=== PATIENT | female | born 1985 | race African-American/Black ===

== ENCOUNTER 2016-10-12 19:37 | Emergency (ER) | payer MEDICAID ==
[~2016-10-12] VITALS: Ht 165.1 cm; Wt 48.2 kg
[~2016-10-12 19:37] MED LIST: ARIP15TA3 PO
[2016-10-12 21:46] LABS: BASOPHILS # (AUTO) 0.03 K/uL (0.00-0.20); BASOPHILS % (AUTO) 0.3 % (0.0-2.0); EOSINOPHILS # (AUTO) 0.15 K/uL (0.00-0.70); EOSINOPHILS % (AUTO) 1.57 % (1.0-6.0); HEMATOCRIT 36.6 % (36-46); HEMOGLOBIN 12.4 g/dL (12.0-16.0); LYMPHOCYTES # (AUTO) 3.1 K/uL (1.0-4.8); LYMPHOCYTES % (AUTO) 31.2 % (22.0-44.0); MEAN CORPUSCULAR HEMOGLOBIN 28.1 pg (26.0-34.0); MEAN CORPUSCULAR HGB CONC 33.8 G/dL (31.0-37.0); MEAN CORPUSCULAR VOLUME 83 fL (80-100); MONOCYTES # (AUTO) 0.7 K/uL (0.1-1.0); MONOCYTES % (AUTO) 6.6 % (2.0-9.0); NEUTROPHILS % (AUTO) 60.3 % (40.0-70.0); PLATELET COUNT (AUTO) 265 K/uL (150-450); RED BLOOD CELL COUNT(AUTO) 4.42 MIL/uL (4.00-5.20); RED CELL DISTRIBUTION WIDTH 13.5 % (11.5-14.5); WHITE BLOOD COUNT (AUTO) 9.9 K/uL (4.5-11.0)
[2016-10-12 21:59] LABS: ANION GAP 7 mmol/L (8-16); CALCIUM, TOTAL 9.1 mg/dL (8.8-10.5); CARBON DIOXIDE 28 mmol/L (22-29); CHLORIDE 106 mmol/L (98-107); CREATININE 0.54 mg/dL (0.60-1.30); GLOMERULAR FILTR. RATE CALC > 60 mL/min (>60); POTASSIUM 4.3 mmol/L (3.5-5.1); SODIUM SERUM 141 mmol/L (136-145); UREA NITROGEN, BLOOD 10 mg/dL (7-18)
[2016-10-12 22:04] LABS: ALANINE AMINOTRANSFERASE 23 U/L (12-78); ALBUMIN 3.7 g/dL (3.4-5.0); ASPARTATE AMINOTRANSFERASE 13 U/L (15-37); BILIRUBIN,TOTAL 0.1 mg/dL (0.1-1.0); TOTAL PROTEIN, SERUM 7.1 g/dL (6.4-8.2)
[2016-10-12 22:07] VITALS: BP 125/73
== END 2016-10-12 22:16 | disposition home or self-care (01) ==
LOC: EMS 19:38
DX: F29 Unspecified psychosis not due to a substance or known physiological condition (principal); F32.9 Major depressive disorder, single episode, unspecified
CPT/HCPCS: 36415; 80053; 85025; 99284; G0480

== ENCOUNTER 2016-10-18 04:17 | Inpatient (IN) | payer MEDICAID, OTHER ==
[~2016-10-18] VITALS: Ht 152.4 cm; Wt 47.9 kg
[2016-10-18 05:20] LABS: BASOPHILS % (AUTO) 0.3 % (0.0-2.0); EOSINOPHILS % (AUTO) 1.7 % (1.0-6.0); HEMATOCRIT 36.1 % (36-46); HEMOGLOBIN 11.8 g/dL (12.0-16.0); LYMPHOCYTES % (AUTO) 30.3 % (22.0-44.0); MEAN CORPUSCULAR HEMOGLOBIN 27.2 pg (26.0-34.0); MEAN CORPUSCULAR HGB CONC 32.7 G/dL (31.0-37.0); MEAN CORPUSCULAR VOLUME 83 fL (80-100); MONOCYTES # (AUTO) 0.8 K/uL (0.1-1.0); MONOCYTES % (AUTO) 7.7 % (2.0-9.0); NEUTROPHILS # (AUTO) 5.9 K/uL (1.8-7.7); PLATELET COUNT (AUTO) 269 K/uL (150-450); RED BLOOD CELL COUNT(AUTO) 4.35 MIL/uL (4.00-5.20); WHITE BLOOD COUNT (AUTO) 9.8 K/uL (4.5-11.0)
[2016-10-18 05:26] LABS: ANION GAP 7 mmol/L (8-16); CALCIUM, TOTAL 8.2 mg/dL (8.8-10.5); CARBON DIOXIDE 29 mmol/L (22-29); CHLORIDE 103 mmol/L (98-107); CREATININE 0.62 mg/dL (0.60-1.30); GLOMERULAR FILTR. RATE CALC > 60 mL/min (>60); POTASSIUM 3.6 mmol/L (3.5-5.1); SODIUM SERUM 139 mmol/L (136-145); UREA NITROGEN, BLOOD 12 mg/dL (7-18)
[2016-10-18 05:36] LABS: ALANINE AMINOTRANSFERASE 20 U/L (12-78); ALBUMIN 3.4 g/dL (3.4-5.0); ASPARTATE AMINOTRANSFERASE 13 U/L (15-37); BILIRUBIN,TOTAL 0.2 mg/dL (0.1-1.0); TOTAL PROTEIN, SERUM 6.7 g/dL (6.4-8.2)
[2016-10-18] MEDS ORDERED: HALOPERIDOL 5 MG TABLET PO PRN (07:00)
[2016-10-18] MEDS ORDERED: LORazepam 2 MG TABLET PO PRN (07:00)
[2016-10-18 21:57] VITALS: BP 115/73
[2016-10-18] MEDS ORDERED: INFLUENZA VIRUS VACCINE QVS 2016-17 (3YR+)/PF 60 MCG/0.5 ML SYRINGE IM ONE (22:30)
[2016-10-19 06:39] VITALS: BP 109/61
[2016-10-19 08:55] VITALS: BP 113/66
[2016-10-19] MEDS: ARIPiprazole 15 MG TABLET PO SCH (09:00)
[2016-10-19 18:59] VITALS: BP 104/65
[2016-10-20 08:00] VITALS: BP 118/70
[2016-10-20] MEDS: ARIPiprazole 15 MG TABLET PO SCH ×2 (09:00→10:04)
[2016-10-20 16:29] VITALS: BP 104/65
[2016-10-21] MEDS: ARIPiprazole 15 MG TABLET PO SCH (09:00)
[2016-10-21 10:31] VITALS: BP 109/66
[2016-10-21 20:07] VITALS: BP 106/61
[2016-10-21] MEDS: ZOLPIDEM TARTRATE 10 MG TABLET PO PRN (22:38)
[2016-10-22] MEDS: ARIPiprazole 15 MG TABLET PO SCH (09:00)
[2016-10-22 10:14] VITALS: BP 108/63
[2016-10-22 16:00] VITALS: BP 106/62
[2016-10-23 00:12] VITALS: BP 113/73
[2016-10-23] MEDS: ZOLPIDEM TARTRATE 10 MG TABLET PO PRN ×2 (00:12→21:08)
[2016-10-23] MEDS: ARIPiprazole 15 MG TABLET PO SCH (08:53)
[2016-10-23 09:59] VITALS: BP 100/75
[2016-10-23 19:03] VITALS: BP 104/58
[2016-10-23] MEDS ORDERED: ARIP15TA3 PO (22:44)
[2016-10-24 08:00] VITALS: BP 101/78
[2016-10-24] MEDS: ARIPiprazole 15 MG TABLET PO SCH (09:00)
== END 2016-10-24 10:45 | disposition home or self-care (01) | DRG 750 ==
LOC: EMS 04:18 → EEVIPCON 04:18 → 3EI 20:00
PROVIDERS: ADMIT Psychiatry & Neurology Child & Adolescent Psychiatry; ATTEND Psychiatry & Neurology Child & Adolescent Psychiatry
DX: F20.0 Paranoid schizophrenia (principal); E83.51 Hypocalcemia; D64.9 Anemia, unspecified; F31.9 Bipolar disorder, unspecified; Z91.19 Patient's noncompliance with other medical treatment and regimen; F41.9 Anxiety disorder, unspecified; Z28.21 Immunization not carried out because of patient refusal
CPT/HCPCS: 70450; 99285; G0480

== ENCOUNTER 2016-12-04 17:51 | Emergency (ER) | payer MEDICAID, OTHER ==
[~2016-12-04] VITALS: Ht 152.4 cm; Wt 47.0 kg
[2016-12-04 18:57] LABS: BASOPHILS % (AUTO) 0.2 % (0.0-2.0); EOSINOPHILS % (AUTO) 1.1 % (1.0-6.0); HEMATOCRIT 43.1 % (36-46); HEMOGLOBIN 13.8 g/dL (12.0-16.0); LYMPHOCYTES # (AUTO) 2.5 K/uL (1.0-4.8); LYMPHOCYTES % (AUTO) 22.1 % (22.0-44.0); MEAN CORPUSCULAR HGB CONC 32.1 G/dL (31.0-37.0); MEAN CORPUSCULAR VOLUME 84 fL (80-100); MONOCYTES # (AUTO) 0.5 K/uL (0.1-1.0); MONOCYTES % (AUTO) 4.6 % (2.0-9.0); NEUTROPHILS # (AUTO) 8.2 K/uL (1.8-7.7); PLATELET COUNT (AUTO) 305 K/uL (150-450); RED BLOOD CELL COUNT(AUTO) 5.12 MIL/uL (4.00-5.20); RED CELL DISTRIBUTION WIDTH 13.4 % (11.5-14.5); WHITE BLOOD COUNT (AUTO) 11.3 K/uL (4.5-11.0)
[2016-12-04 19:10] LABS: ANION GAP 10 mmol/L (8-16); CALCIUM, TOTAL 9.2 mg/dL (8.8-10.5); CARBON DIOXIDE 28 mmol/L (22-29); CHLORIDE 103 mmol/L (98-107); CREATININE 0.52 mg/dL (0.60-1.30); GLOMERULAR FILTR. RATE CALC > 60 mL/min (>60); POTASSIUM 3.7 mmol/L (3.5-5.1); SODIUM SERUM 141 mmol/L (136-145); UREA NITROGEN, BLOOD 8 mg/dL (7-18)
[2016-12-04 19:15] LABS: ALANINE AMINOTRANSFERASE 30 U/L (12-78); ALBUMIN 4.1 g/dL (3.4-5.0); ASPARTATE AMINOTRANSFERASE 18 U/L (15-37); BILIRUBIN,TOTAL 0.3 mg/dL (0.1-1.0); TOTAL PROTEIN, SERUM 7.9 g/dL (6.4-8.2)
[2016-12-04 20:19] VITALS: BP 123/81
== END 2016-12-04 20:19 | disposition home or self-care (01) ==
LOC: EMS 17:54
DX: F20.9 Schizophrenia, unspecified (principal); M54.2 Cervicalgia; F31.9 Bipolar disorder, unspecified
CPT/HCPCS: 36415; 80053; 84703; 85025; 99284; G0480

== ENCOUNTER 2019-02-22 14:11 | Inpatient (IN) | payer MEDICAID, OTHER ==
[~2019-02-22] VITALS: Ht 149.9 cm; Wt 41.5 kg
[2019-02-22 15:37] LABS: BASOPHILS % (AUTO) 0.4 % (0.0-2.0); EOSINOPHILS % (AUTO) 1.3 % (1.0-6.0); HEMATOCRIT 36.3 % (36-46); HEMOGLOBIN 11.8 g/dL (12.0-16.0); LYMPHOCYTES # (AUTO) 1.7 K/uL (1.0-4.8); LYMPHOCYTES % (AUTO) 18.6 % (22.0-44.0); MEAN CORPUSCULAR HEMOGLOBIN 28.5 pg (26.0-34.0); MEAN CORPUSCULAR HGB CONC 32.4 G/dL (31.0-37.0); MEAN CORPUSCULAR VOLUME 88 fL (80-100); MONOCYTES # (AUTO) 0.6 K/uL (0.1-1.0); MONOCYTES % (AUTO) 6.4 % (2.0-9.0); NEUTROPHILS # (AUTO) 6.7 K/uL (1.8-7.7); NEUTROPHILS % (AUTO) 73.3 % (40.0-70.0); PLATELET COUNT (AUTO) 275 K/uL (150-450); RED BLOOD CELL COUNT(AUTO) 4.14 MIL/uL (4.00-5.20); RED CELL DISTRIBUTION WIDTH 13.3 % (11.5-14.5)
[2019-02-22 15:50] LABS: ANION GAP 9 mmol/L (8-16); CALCIUM, TOTAL 9.5 mg/dL (8.8-10.5); CARBON DIOXIDE 27 mmol/L (22-29); CHLORIDE 105 mmol/L (98-107); CREATININE 0.45 mg/dL (0.60-1.30); GLOMERULAR FILTR. RATE CALC > 60 mL/min (>60); GLUCOSE,RANDOM 91 mg/dL (70-110); POTASSIUM 4.7 mmol/L (3.5-5.1); SODIUM SERUM 141 mmol/L (136-145); UREA NITROGEN, BLOOD 11 mg/dL (7-18)
[2019-02-22 16:03] LABS: ALANINE AMINOTRANSFERASE 20 U/L (12-78); ALBUMIN 3.6 g/dL (3.4-5.0); ALKALINE PHOSPHATASE 35 U/L (46-116); ASPARTATE AMINOTRANSFERASE 19 U/L (15-37); BILIRUBIN,TOTAL 0.4 mg/dL (0.1-1.0); HCG,QUANTITATIVE < 1 mIU/mL (0-6); TOTAL PROTEIN, SERUM 6.9 g/dL (6.4-8.2)
[2019-02-22] MEDS ORDERED: ACETAMINOPHEN 500 MG TABLET PO ONE (19:15)
[2019-02-22] MEDS ORDERED: HALOPERIDOL 5 MG TABLET PO PRN (21:30)
[2019-02-22 21:58] LABS: AMPHET/METH SCREEN,URINE NEGATIVE (NEGATIVE); BARBITURATE SCREEN, URINE NEGATIVE (NEGATIVE); BENZODIAZEPINES SCREEN,URINE NEGATIVE (NEGATIVE); CANNABINOID SCREEN,URINE NEGATIVE (NEGATIVE); COCAINE SCREEN,URINE NEGATIVE (NEGATIVE); METHADONE SCREEN, URINE NEGATIVE (NEGATIVE); OPIATE SCREEN,URINE NEGATIVE (NEGATIVE)
[2019-02-22 21:59] LABS: PHENCYCLIDINE SCREEN,URINE NEGATIVE (NEGATIVE)
[2019-02-22 22:00] VITALS: BP 102/68
[2019-02-22] MEDS ORDERED: MAG HYDROX/AL HYDROX/SIMETH ES 30 ML SUSPENSION UDCUP PO PRN (22:45)
[2019-02-22] MEDS ORDERED: ONDANSETRON HCL 4 MG TABLET PO PRN (22:45)
[2019-02-22] MEDS ORDERED: PETROLATUM,WHITE 28 GM JELLY TP PRN (22:45)
[2019-02-22] MEDS ORDERED: DOCUSATE SODIUM 100 MG CAPSULE PO PRN (22:45)
[2019-02-22] MEDS ORDERED: NICOTINE 14 MG/24 HOUR PATCH TD PRN (22:45)
[2019-02-22] MEDS ORDERED: IBUPROFEN 400 MG TABLET PO PRN (22:45)
[2019-02-22] MEDS ORDERED: CloNIDine HCL 0.1 MG TABLET PO PRN (22:45)
[2019-02-22] MEDS ORDERED: GuaiFENesin/D-METHORPHAN [SUGAR-FREE] 200-20MG/10 ML SYRUP UDCUP PO PRN (22:45)
[2019-02-22] MEDS ORDERED: MAGNESIUM HYDROXIDE SUSPENSION 30 ML UDCUP PO PRN (22:45)
[2019-02-22] MEDS ORDERED: ALBUTEROL SULFATE HFA 90 MCG/PUFF 8 GM INHALER IH PRN (22:45)
[2019-02-22] MEDS ORDERED: ACETAMINOPHEN 325 MG TABLET PO PRN (22:45)
[2019-02-22] MEDS ORDERED: LOPERAMIDE HCL 2 MG CAPSULE PO PRN (22:45)
[2019-02-23 06:44] LABS: CHOL/HDL RATIO 2.1 (3.9-5.7); THYROID STIMULATING HORMONE 0.53 uIU/mL (0.36-3.74)
[2019-02-23] MEDS: ARIPiprazole 5 MG TABLET PO SCH ×2 (10:00→10:42)
[2019-02-23 20:42] VITALS: BP 102/70
[2019-02-24 08:29] VITALS: BP 107/71
[2019-02-24] MEDS: OMEGA-3/DHA/EPA/FISH OIL 1,000 MG CAPSULE PO SCH (08:52)
[2019-02-24] MEDS: MULTIVITAMINS WITH MINERALS, THERAPEUTIC TABLET PO SCH (08:52)
[2019-02-24] MEDS: ARIPiprazole 5 MG TABLET PO SCH (08:57)
[2019-02-24 17:10] VITALS: BP 109/73
[2019-02-25] MEDS: ARIPiprazole 5 MG TABLET PO SCH ×3 (08:46→20:40)
[2019-02-25] MEDS: MULTIVITAMINS WITH MINERALS, THERAPEUTIC TABLET PO SCH (08:47)
[2019-02-25] MEDS: OMEGA-3/DHA/EPA/FISH OIL 1,000 MG CAPSULE PO SCH (08:47)
[2019-02-25 09:38] VITALS: BP 101/65
[2019-02-25 16:39] VITALS: BP 112/79
[2019-02-26 05:48] VITALS: BP 103/68
[2019-02-26] MEDS: OMEGA-3/DHA/EPA/FISH OIL 1,000 MG CAPSULE PO SCH (08:48)
[2019-02-26] MEDS: ARIPiprazole 5 MG TABLET PO SCH ×2 (08:49→21:00)
[2019-02-26] MEDS: MULTIVITAMINS WITH MINERALS, THERAPEUTIC TABLET PO SCH (08:49)
[2019-02-26 09:04] VITALS: BP 114/76
[2019-02-26 16:11] VITALS: BP 106/66
[2019-02-26] MEDS: LORazepam 2 MG TABLET PO PRN (22:41)
[2019-02-26] MEDS: ZOLPIDEM TARTRATE 10 MG TABLET PO PRN (22:41)
[2019-02-27] MEDS: MULTIVITAMINS WITH MINERALS, THERAPEUTIC TABLET PO SCH (09:46)
[2019-02-27] MEDS: OMEGA-3/DHA/EPA/FISH OIL 1,000 MG CAPSULE PO SCH (09:46)
[2019-02-27] MEDS: ARIPiprazole 5 MG TABLET PO SCH ×2 (09:49→20:24)
[2019-02-27 10:31] VITALS: BP 108/67
[2019-02-27 16:15] VITALS: BP 97/57
[2019-02-27] MEDS: LORazepam 2 MG TABLET PO PRN (20:24)
[2019-02-28] MEDS: ARIPiprazole 5 MG TABLET PO SCH ×2 (09:00→20:43)
[2019-02-28 09:03] VITALS: BP 95/63
[2019-02-28] MEDS: MULTIVITAMINS WITH MINERALS, THERAPEUTIC TABLET PO SCH (09:45)
[2019-02-28] MEDS: OMEGA-3/DHA/EPA/FISH OIL 1,000 MG CAPSULE PO SCH (09:45)
[2019-02-28 16:48] VITALS: BP 97/67
[2019-02-28] MEDS: ZOLPIDEM TARTRATE 10 MG TABLET PO PRN (21:39)
[2019-03-01] MEDS: MULTIVITAMINS WITH MINERALS, THERAPEUTIC TABLET PO SCH (08:50)
[2019-03-01] MEDS: ARIPiprazole 5 MG TABLET PO SCH ×2 (08:50→20:54)
[2019-03-01] MEDS: OMEGA-3/DHA/EPA/FISH OIL 1,000 MG CAPSULE PO SCH (08:50)
[2019-03-01 09:36] VITALS: BP 101/66
[2019-03-01 16:33] VITALS: BP 94/55
[2019-03-01] MEDS: LORazepam 2 MG TABLET PO PRN (22:30)
[2019-03-02] MEDS: ARIPiprazole 5 MG TABLET PO SCH (08:33)
[2019-03-02] MEDS: OMEGA-3/DHA/EPA/FISH OIL 1,000 MG CAPSULE PO SCH (08:33)
[2019-03-02] MEDS: MULTIVITAMINS WITH MINERALS, THERAPEUTIC TABLET PO SCH (08:33)
[2019-03-02 08:55] VITALS: BP 113/78
[2019-03-02] MEDS ORDERED: ARIPiprazole 15 MG TABLET PO SCH (09:00)
[2019-03-02 16:29] VITALS: BP 93/58
[2019-03-02] MEDS: ARIPiprazole 15 MG TABLET PO SCH (21:31)
[2019-03-03 08:00] VITALS: BP 113/69
[2019-03-03] MEDS: OMEGA-3/DHA/EPA/FISH OIL 1,000 MG CAPSULE PO SCH (10:17)
[2019-03-03] MEDS: MULTIVITAMINS WITH MINERALS, THERAPEUTIC TABLET PO SCH (10:17)
[2019-03-03 16:38] VITALS: BP 99/70
[2019-03-03] MEDS: ARIPiprazole 15 MG TABLET PO SCH (20:23)
[2019-03-03] MEDS: LORazepam 2 MG TABLET PO PRN (20:33)
[2019-03-04] MEDS: MULTIVITAMINS WITH MINERALS, THERAPEUTIC TABLET PO SCH (09:43)
[2019-03-04] MEDS: OMEGA-3/DHA/EPA/FISH OIL 1,000 MG CAPSULE PO SCH (09:43)
[2019-03-04 10:01] VITALS: BP 104/71
[2019-03-04 16:27] VITALS: BP 108/72
[2019-03-04] MEDS: ARIPiprazole 15 MG TABLET PO SCH (20:43)
[2019-03-05 00:05] VITALS: BP 129/68
[2019-03-05] MEDS: ZOLPIDEM TARTRATE 10 MG TABLET PO PRN ×2 (00:13→20:00)
[2019-03-05] MEDS: OMEGA-3/DHA/EPA/FISH OIL 1,000 MG CAPSULE PO SCH (09:21)
[2019-03-05] MEDS: MULTIVITAMINS WITH MINERALS, THERAPEUTIC TABLET PO SCH (09:21)
[2019-03-05 09:26] VITALS: BP 164/63
[2019-03-05 16:39] VITALS: BP 131/78
[2019-03-05] MEDS: ARIPiprazole 15 MG TABLET PO SCH (20:00)
[2019-03-06 02:23] VITALS: BP 102/73
[2019-03-06 08:00] VITALS: BP 122/76
[2019-03-06] MEDS: MULTIVITAMINS WITH MINERALS, THERAPEUTIC TABLET PO SCH (09:12)
[2019-03-06] MEDS: OMEGA-3/DHA/EPA/FISH OIL 1,000 MG CAPSULE PO SCH (09:12)
[2019-03-06 18:52] VITALS: BP 106/68
[2019-03-06] MEDS: ARIPiprazole 15 MG TABLET PO SCH (20:36)
[2019-03-06] MEDS: ZOLPIDEM TARTRATE 10 MG TABLET PO PRN (20:36)
[2019-03-07] MEDS: MULTIVITAMINS WITH MINERALS, THERAPEUTIC TABLET PO SCH (09:16)
[2019-03-07] MEDS: OMEGA-3/DHA/EPA/FISH OIL 1,000 MG CAPSULE PO SCH (09:16)
[2019-03-07] MEDS ORDERED: ARIP15TA2 PO (11:45)
[2019-03-07] MEDS ORDERED: MULT-1239 PO (12:03)
[2019-03-07] MEDS ORDERED: OMEG-135 PO (12:08)
== END 2019-03-07 14:50 | disposition home or self-care (01) | DRG 750 ==
LOC: EMS 14:12 → 3EI 21:00 → EMS 21:39
DX: F20.0 Paranoid schizophrenia (principal); Z91.19 Patient's noncompliance with other medical treatment and regimen; D64.9 Anemia, unspecified; F43.20 Adjustment disorder, unspecified; M54.2 Cervicalgia; R10.13 Epigastric pain; Z79.899 Other long term (current) drug therapy
CPT/HCPCS: 83036; 84443; G0480